=== PATIENT | female | born 1950 | race Hispanic/Latino ===

== ENCOUNTER 2017-07-27 14:03 | Outpatient (CLI) | payer MEDICARE ==
--- NOTE | 2017-07-27 16:50 | Mammography Report ---
BILATERAL DIGITAL SCREENING MAMMOGRAM with CAD: 07/27/17 14:03:00 CLINICAL: Routine screening.History of a right benign biopsy. COMPARISON: FINDINGS: The breasts are almost entirely fatty.A few bilateral benign calcifications. No mass, architectural distortion or suspicious calcifications. IMPRESSION: No mammographic evidence of malignancy. BI-RADS CATEGORY: 2 -- Benign RECOMMENDATION: Routine mammographic screening in one year. COMMENT: Patient follow-up letters are generated by our [employer] application.
== END 2017-07-27 14:04 | disposition home or self-care (01) ==
LOC: SPVWC 14:03
DX: Z12.31 Encounter for screening mammogram for malignant neoplasm of breast (principal)
CPT/HCPCS: 77067; G0202

== ENCOUNTER 2019-08-15 08:32 | Outpatient (CLI) | payer MEDICARE ==
--- NOTE | 2019-08-15 16:22 | Mammography Report ---
DIGITAL SCREENING MAMMOGRAM WITH CAD, 08/15/2019 INDICATION: Routine screening mammography. TECHNIQUE: Digital bilateral 2D mammography was obtained in the craniocaudal and mediolateral obliq ue projections. This examination was interpreted with the benefit of Computer-Aided Detection analysi s. COMPARISON: 08/05/2018 FINDINGS: Breast Density: The breasts are heterogeneously dense, which may obscure small masses. There is no evidence of dominant mass, suspicious calcifications or architectural distortion in eithe r breast. IMPRESSION: No mammographic evidence of malignancy. Follow up recommendation: Routine yearly BI-RADS Category 2: Benign. A "normal" or negative report should not discourage follow up or biopsy of a clinically significant f inding. A written summary of these findings will be mailed to the patient. The patient will be entered into a mammography reporting system which will generate a reminder letter for the patient's next appointmen t at the appropriate interval. The [employer] recommends yearly mammograms starting at age 40 and continuing as l jen as a woman is in good health. Breast MRI is recommended for women with an approximate 20-25% or greater lifetime risk of breast cancer, including women with a strong family history of breast or ova jacquelyn cancer or who have been treated for Hodgkin's disease. Signer Name: Richi Jalloh MD Signed: 08/15/2019 4:18 PM Workstation Name: [id number]
== END 2019-08-15 08:33 | disposition home or self-care (01) ==
LOC: SPVWC 08:32
DX: Z12.31 Encounter for screening mammogram for malignant neoplasm of breast (principal)
CPT/HCPCS: 77067